=== PATIENT | male | born 1980 | race Caucasian/White ===

== ENCOUNTER 2017-05-12 16:59 | Emergency (ER) | payer OTHER ==
[~2017-05-12] VITALS: Ht 190.5 cm; Wt 172.4 kg
[~2017-05-12 16:59] MED LIST: ALLO100T PO; ALPR0.5T PO; CARV12.5 PO; CARV25TA2 PO; CLIN300C8 PO; DICL75TA PO; DOXY100C2 PO; FURO-68 PO; GLUC1TAB40 PO; HYDR-2766 PO; HYDR12.58 PO; MULT1CAP15 PO; OMEP20CA9 PO; PHEN30CA3 PO; POTA10TA31 PO; PRED20TA PO; PROAIR HFA8.5 GM IH; RAMI10CA PO; RAMI5CAP33 PO; SPIR25TA3 PO; SUMA100T4 PO; TIZA4CAP PO; TRIA1CAP3 PO; VITA400C6 PO
[2017-05-12 17:00] VITALS: BP 143/80
--- NOTE | 2017-05-12 17:20 | PHYS DOC ---
Past Medical History Past Medical History: Anxiety, Arthritis, GERD, Hypertension, Other Additional Past Medical Histor: ASD (repaired), cardiomyopathy, mitral valve problems Past Surgical History: Appendectomy, Tonsillectomy, Other Additional Past Surgical Histo: lower back surgery, 2 hernia repairs, ASD repair, cardiac cath Alcohol Use: None Drug Use: None Adult General Chief Complaint Chief Complaint: RIB PAIN [facility] HPI Patient is a 36 year old male with history of hypertension, arthritis, currently on Coumadin and monitored by the PCP who presents today with contusion to the left posterior ribs. Patient states a piece of plywood flew approx 15 feet hitting him on the left posterior ribs. Patient denies any loss of consciousness. Denies any difficulty breathing. Review of Systems Review of Systems Constitutional: Denies fever or chills [] Eyes: Denies change in visual acuity, redness, or eye pain [] HENT: Denies nasal congestion or sore throat [] Respiratory: Left posterior rib contusion. Denies cough or shortness of breath [ ] Cardiovascular: No additional information not addressed in HPI [] GI: Denies abdominal pain, nausea, vomiting, bloody stools or diarrhea [] : Denies dysuria or hematuria [] Musculoskeletal: Denies back pain or joint pain [] Integument: Denies rash or skin lesions [] Neurologic: Denies headache, focal weakness or sensory changes [] All other systems were reviewed and found to be within normal limits, except as documented in this note. Allergies Allergies Allergies Coded Allergies Type Severity Reaction Last Updated Verified Penicillins Allergy Intermediate see comment 06/26/15 Yes cephalexin Allergy Intermediate see comment 06/26/15 Yes ciprofloxacin Allergy Intermediate see comment 06/26/15 Yes levofloxacin Adverse Reaction Intermediate nausea/vomiting 06/26/15 Yes Physical Exam Physical Exam Constitutional: Well developed, well nourished, no acute distress, non-toxic appearance. [] HENT: Normocephalic, atraumatic, bilateral external ears normal, oropharynx moist, no oral exudates, nose normal. [] Eyes: PERRLA, EOMI, conjunctiva normal, no discharge. [] Neck: Normal range of motion, no tenderness, supple, no stridor. [] Cardiovascular:Heart rate regular rhythm, no murmur [] Lungs & Thorax: Left posterior ribs approximately ribs 6,7 and 8 with superficial bruising. Bilateral breath sounds clear to auscultation [] Abdomen: Bowel sounds normal, soft, no tenderness, no masses, no pulsatile masses. [] Skin: Warm, dry, no erythema, no rash. [] Back: No tenderness, no CVA tenderness. [] Extremities: No tenderness, no cyanosis, no clubbing, ROM intact, no edema. [] Neurologic: Alert and oriented X 3, normal motor function, normal sensory function, no focal deficits noted. [] Psychologic: Affect normal, judgement normal, mood normal. [] Current Patient Data Vital Signs Vital Signs Date Time Temp Pulse Resp B/P (MAP) Pulse Ox O2 Delivery O2 Flow Rate FiO2 05/12/17 17:00 98.0 74 18 143/80 (101) 94 Room Air 98.0 EKG EKG [] Radiology/Procedures Radiology/Procedures [] Course & Med Decision Making Course & Med Decision Making Pertinent Labs and Imaging studies reviewed. (See chart for details) Patient has posterior rib contusion after being heat by a flying plywood. Left rib x-rays including PA chest interpreted by Dr. Mejía were negative for any acute findings. Patient has left rib contusion. Ice to the affected area recommended. Discharged with cyclobenzaprine. Deep breaths recommended. Follow- up with PCP in 1-2 weeks. Provided return precautions and discharged in stable condition. Dragon Disclaimer Dragon Disclaimer This electronic medical record was generated, in whole or in part, using a voice recognition dictation system. Departure Departure Impression: Primary Impression: Contusion of rib on left side Disposition: 01 HOME, SELF-CARE Condition: STABLE Referrals: GARY SMITH MD (PCP) Follow-up in one week Patient Instructions: Contusion, [id number] Additional Instructions: You were seen with rib contusion. Apply ice to the affected area. Take the prescribed muscle relaxer as needed for pain. Take deep breaths 10 times every hour while awake. Follow-up with your doctor in one week. Return to the emergency room if symptoms worsen. Scripts Cyclobenzaprine Hcl (CYCLOBENZAPRINE HCL) 10 Mg Tablet 1 TAB PO TID, #30 TAB Prov: LALY CARDOZA FRICTION WELDING MACHINE OPERATOR 05/12/17 Problem Qualifiers Primary Impression: Contusion of rib on left side Encounter type: initial encounter Qualified Codes: S20.212A - Contusion of left front wall of thorax, initial encounter LALY CARDOZA APRN May 12, 2017 17:20
[2017-05-12] MEDS ORDERED: CYCL10TA2 PO (18:10)
--- NOTE | 2017-05-13 08:15 | RAD ---
Left RIBS with chest, 3 views, 05/12/2017: History: Injury, pain No rib fracture is identified. There is no evidence of underlying pneumothorax or hemothorax. Mild bibasilar linear opacities are compatible with atelectasis. There has been a previous median sternotomy. The heart is of normal size. There is a mild thoracolumbar scoliosis. IMPRESSION: 1. No acute left rib abnormality is detected. 2. Bibasilar linear atelectasis.
[2017-05-18] MEDS ORDERED: ENAL10TA PO (18:31)
[2017-05-18] MEDS ORDERED: TIZA4TAB PO (18:31)
[2017-05-18] MEDS ORDERED: DOFE250C PO (18:31)
[2017-05-18] MEDS ORDERED: DILT120C80 PO (18:31)
[2017-05-18] MEDS ORDERED: METO-269 PO (18:31)
[2017-05-18] MEDS ORDERED: WARF7.5T6 PO (18:36)
[2017-05-18] MEDS ORDERED: WARF5TAB7 PO (18:36)
== END 2017-05-12 18:24 | disposition home or self-care (01) ==
LOC: ER 16:59
DX: S20.212A Contusion of left front wall of thorax, initial encounter (principal); K21.9 Gastro-esophageal reflux disease without esophagitis; M19.90 Unspecified osteoarthritis, unspecified site; I10 Essential (primary) hypertension; Z88.0 Allergy status to penicillin; Z88.1 Allergy status to other antibiotic agents; W20.8XXA Other cause of strike by thrown, projected or falling object, initial encounter; Y93.89 Activity, other specified; Y99.8 Other external cause status; Y92.89 Other specified places as the place of occurrence of the external cause
CPT/HCPCS: 71101; 99284

== ENCOUNTER → 2018-03-18 | Outpatient (CLI) | payer OTHER ==
[2017-06-01 11:00] VITALS: BP 130/73
[~2018-03-18] MED LIST changes: +CYCL10TA2 PO; +DILT120C80 PO; +DOFE250C PO; +ENAL10TA PO; +METO-269 PO; -RAMI10CA PO; +RAMI10CA53 PO; -SPIR25TA3 PO; +SPIR25TA5 PO; +TIZA4TAB PO; +WARF-31 PO; +WARF7.5T45 PO
--- NOTE | 2018-03-18 16:28 | KCIC ---
KNEE RIGHT 3V History: Right anterior pain and effusion for 5 days.. Comparison: None are available Suprapatellar fullness, compatible with a large joint effusion. No bone destruction or acute fracture. Joint spaces grossly intact. Soft tissue nodularity along the medial lower extremity, likely superficial varicosities. IMPRESSION: Large suprapatellar joint effusion. Electronically signed by: Joce Miller MD (03/18/2018 4:25 PM) [facility]
== END | disposition home or self-care (01) ==
LOC: KCIC 15:22
PROVIDERS: ATTEND Family Medicine
DX: M25.461 Effusion, right knee (principal)
CPT/HCPCS: 73562

== ENCOUNTER → 2018-05-14 | Outpatient (CLI) | payer OTHER ==
[2017-06-01 11:00] VITALS: BP 130/73
[~2018-05-14] MED LIST changes: -DILT120C80 PO; +DILT120C85 PO; -HYDR-2766 PO; +HYDR-2769 PO
--- NOTE | 2018-05-14 14:37 | KCIC ---
MR of the right knee Indication: Right knee pain, pain since March. Swelling. Pain laterally. Comparison: None are available. Technique: The standard multiplanar sequences are obtained. FINDINGS: Artifact: Mild motion degradation. Medial meniscus: Intrameniscal signal likely exaggerated by the motion. No definite tear. Lateral meniscus: Intact. Anterior cruciate ligament: Intact. Posterior cruciate ligament: Intact Medial collateral ligament: Intact. Lateral structures: * Iliotibial band: Intact. * Lateral collateral ligament: Intact. * Biceps femoris tendon: Intact * Popliteus tendon attachment: Intact Extensive mechanism: * Patellar tendon: Intact * Quadriceps tendon: Intact * Retinacular structures: Intact Fluid: Moderate joint effusion. No significant Caba's cyst. Intra-articular bodies: None visualized Joint compartments * patellofemoral joint: Moderate chondromalacia. * medial compartment: Moderate chondromalacia. * lateral compartment: Moderate to severe chondromalacia at the lateral tibial plateau, [id number] at the lateral femoral condyle. Bones: No significant lesion or acute fracture. Soft tissue: Mild anterior subcutaneous edema. Impression: 1. Primary osteoarthritis. 2. Medial meniscal signal, likely exaggerated by the motion degradation, no definite tear. Electronically signed by: Joce Miller MD (05/14/2018 2:34 PM) [facility]
== END | disposition home or self-care (01) ==
LOC: KCIC MRI 08:35
PROVIDERS: ATTEND Family Medicine
DX: M17.11 Unilateral primary osteoarthritis, right knee (principal); M22.41 Chondromalacia patellae, right knee; M25.461 Effusion, right knee; R60.0 Localized edema
CPT/HCPCS: 73721

== ENCOUNTER 2018-09-29 06:38 | Day surgery (SDC) | payer OTHER ==
--- NOTE | 2018-09-28 16:59 | PDOC1 ---
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 He had a right knee injury in March, denied by Worker's Comp. He said he worked hard for a day at work, the knee swelled when he was at work, and he couldn't weight-bear the next day. He saw Dr. Smith, a week later, using a walker. 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 Aspirated twice and blood came out of the knee when it was aspirated. Depo inj in may 2018. Ordered hinged knee braces but not wearing today. He has a complex medical history which somewhat interferes with the treatment of his knee. For example normally NSAIDs would be used but he cannot take them due to routine Coumadin usage. He has a prior injury history, after which he developed 5 pulmonary emboli. In May 2017 he had an on-the-job injury where he got hit in the back with plywood. He sustained a spleen and liver laceration, and a pneumothorax, and was initially treated in the ICU. He then was hospitalized for a total of 2 months, including at [facility]. He was hospitalized from May 12, 2017 until July 07, 2017. It took him about 10 months to get back to work and he finally did in late February 2018. He is on nighttime oxygen. He remains on Coumadin. He's been taking hydrocodone recently. At his last visit I recommended nonoperative treatment with a cortisone injection and physical therapy. He has some symptoms of medial meniscus tear pathology but the MRI is not conclusive, and he would be high risk for surgery. We tried the cortisone injection and therapy he is still struggling quite a bit. He said he was about 30 or 40% better with the therapy and then suddenly got worse. He has medial knee pain, and sometimes radiates posteriorly. It does not feel like a DVT, and he is on Coumadin with INR 2.5-3.5, so a new clot would not likely drying rack changer.Has lost short term disablility due to lack of evidence he needed to be off of work, so went to a few PT visits but could not afford more. Has been doing exercises at home which has caused pain. Having trouble lifting leg. His symptoms and history are consistent with medial meniscus tear, and MRI certainly shows some changes in the posterior medial meniscus very suspi cious for medial meniscus tear. He is here for elective arthroscopic meniscectomy. Past Medical History Past Medical History Cardiomyopathy. Back pain. High blood pressure. Arythmia. Cardiac arrhythmia. Lung disease. Ulcers. Migraine headaches. Right Leg Nerve Damage Cardiovascular: Other Pulmonary: Pulmonary embolus GI: Peptic Ulcer disease Heme/Onc: No pertinent hx Hepatobiliary: No pertinent hx Psych: No pertinent hx Rheumatologic: No pertinent hx Infectious disease: No pertinent hx Renal/: No pertinent hx Endocrine: No pertinent hx Past Surgical History Past Surgical History: Hernia Repair, Other Family History Family History: Coronary Artery Disease, Diabetes, Heart Disease Social History Smoke: Quit ALCOHOL: none Drugs: None Current Medications Current Medications Current Medications Fentanyl Citrate (Fentanyl 2ml Vial) 25 mcg PRN Q5MIN PRN IV MILD PAIN; Start 09/29/18 at 07:00; Stop 09/30/18 at 06:59 Fentanyl Citrate (Fentanyl 2ml Vial) 50 mcg PRN Q5MIN PRN IV MODERATE TO SEVERE PAIN; Start 09/29/18 at 07:00; Stop 09/30/18 at 06:59 Morphine Sulfate (Morphine Sulfate) 1 mg PRN Q10MIN PRN IV SEVERE PAIN; Start 09/29/18 at 07:00; Stop 09/30/18 at 06:59 Ringer's Solution 1,000 ml @ 30 mls/hr Q24H IV ; Start 09/29/18 at 07:00; Stop 09/29/18 at 18:59 Lidocaine HCl (Xylocaine-Mpf 1% 2ml Vial) 2 ml PRN 1X PRN ID PRIOR TO IV START; Start 09/29/18 at 07:00; Stop 09/30/18 at 06:59 Hydromorphone HCl (Dilaudid) 0.5 mg PRN Q10MIN PRN IV SEV PAIN, Second choice; Start 09/29/18 at 07:00; Stop 09/30/18 at 06:59 Active Scripts Active Reported Lovenox (Enoxaparin Sodium) 120 Mg/0.8 Ml Disp.syrin 120 Mg SQ BID Bupropion Xl (Bupropion Hcl) 150 Mg Tab.er.24h 150 Mg PO DAILY Potassium Chloride 10 Meq Tablet.er 10 Meq PO DAILY Cardizem Cd (Diltiazem Hcl) 240 Mg Cap.er.24h 240 Mg PO HS Warfarin Sodium 5 Mg Tablet 1 Tab PO QODAY Warfarin Sodium 7.5 Mg Tablet 7.5 Mg PO QODAY Tikosyn (Dofetilide) 250 Mcg Capsule 250 Mcg PO BID Enalapril Maleate 10 Mg Tablet 1 Tab PO DAILY Toprol Xl (Metoprolol Succinate) 50 Mg Tab.er.24h 1 Tab PO BID Proair Hfa Inhaler (Albuterol Sulfate) 8.5 Gm Hfa.aer.ad Unknown Dose IH PRN Q4- 6HRS Sumatriptan Succinate 100 Mg Tablet 100 Mg PO PRN Hydrocodone-Apap 10-325 (Hydrocodone Bit/Acetaminophen) 1 Each Tablet 2 Each PO TID PRN Xanax (Alprazolam) 0.5 Mg Tablet 0.5 Mg PO BID PRN Lasix (Furosemide) 40 Mg Tablet 20 Mg PO DAILY Omeprazole 20 Mg Capsule.dr 40 Mg PO DAILY Allopurinol 100 Mg Tablet 100 Mg PO BID Allergies Allergies: Coded Allergies: Penicillins (Verified Allergy, Intermediate, Anaphylaxis, 09/25/18) cephalexin (Verified Allergy, Intermediate, Anaphylaxis, 09/25/18) ciprofloxacin (Verified Allergy, Intermediate, Shortness of Air, 09/25/18) levofloxacin (Verified Adverse Reaction, Intermediate, nausea/vomiting, 06/26/15) ROS General: No: Chills, Night Sweats Eyes: No Blurry vision, No Double vision HEENT: No: Heacaches, Oral lesions Hematological and Lymphatic: YES: Blood Clots Respiratory: No: Cough, Pleuritic Pain Cardiovascular: No Chest Pain Gastrointestinal: No Nausea, No Vomiting, No Diarrhea Genitourinary: No Dysuria, No Hematuria Musculoskeletal: Yes Joint Pain Physical Exam General: Alert, Cooperative HEENT: Atraumatic Lungs: Other (fair air movement, gets SOB easily) Heart: RRR Abdomen: Soft Extremities: No cyanosis, Normal pulses, Other (The RIGHT knee shows normal alignment, no masses. There is no effusion. There is tenderness at the medial joint line. Genesis's test is positive. There is medial joint line pain with deep flexion and especially with rotation of the tibia. The lateral joint line shows no tenderness. Range of motion is 0-135 degrees. There is trace patellofemoral crepitus. The knee is stable to varus and valgus stress without subluxation or laxity. The ACL feels intact on Otilio testing. Muscle strength is normal (5/5) for quadriceps and hamstrings, and muscle tone is normal. The skin is normal with no scars, rashes, lesions or ulcers. Light touch sensation is intact. No edema and no varicosities. Dorsalis pedis pulse is intact and capillary refill is normal) Skin: No breakdown, No significant lesion Neuro: Normal speech, Sensation intact (nerve damage right leg) Psych/Mental Status: Mood NL Images Images Report reviewed, images independently reviewed, right knee x-ray 03/18/18, and right knee MRI 05/14/18. MRI series 11 image 10 shows meniscal abnormality, but not a definite tear. I agree with Dr. Miller there is definite cartilage abnormality and evidence of osteoarthritis. MRI series 9, images 9-18 show a large effusion. [facility] [address] [place] [address] [facility] [address] [place] [address] IMAGING REPORT Signed PATIENT: BARBARA BURNS ACCOUNT: [id number] : 1980 LOCATION: [facility] AGE: 37 SEX: M EXAM STATUS: REG CLI ORD. PHYSICIAN: GARY SMITH MD REASON: RT ANTERIOR RADIATING LAT KNEE PAIN/EFFUSION X'S 5 DAYS, NO KNOWN INJURY PROCEDURE: KNEE RIGHT 3V KNEE RIGHT 3V History: Right anterior pain and effusion for 5 days.. Comparison: None are available Suprapatellar fullness, compatible with a large joint effusion. No bone destruction or acute fracture. Joint spaces grossly intact. Soft tissue nodularity along the medial lower extremity, likely superficial varicosities. IMPRESSION: Large suprapatellar joint effusion. Electronically signed by: Joce Miller MD (03/18/2018 4:25 PM) [facility] DICTATED and SIGNED BY: JOCE MILLER MD DATE: 03/18/18 0970 [facility] [address] [place] [address] IMAGING REPORT Signed PATIENT: BARBARA BURNS ACCOUNT: [id number] : 1980 LOCATION: [facility] MRI AGE: 37 SEX: M EXAM STATUS: REG CLI ORD. PHYSICIAN: GARY SMITH MD REASON: RIGHT KNEE PAIN PROCEDURE: LOWER EXT JOINT WO RT MR of the right knee Indication: Right knee pain, pain since March. Swelling. Pain laterally. Comparison: None are available. Technique: The standard multiplanar sequences are obtained. FINDINGS: Artifact: Mild motion degradation. Medial meniscus: Intrameniscal signal likely exaggerated by the motion. No definite tear. Lateral meniscus: Intact. Anterior cruciate ligament: Intact. Posterior cruciate ligament: Intact Medial collateral ligament: Intact. Lateral structures: * Iliotibial band: Intact. * Lateral collateral ligament: Intact. * Biceps femoris tendon: Intact * Popliteus tendon attachment: Intact Extensive mechanism: * Patellar tendon: Intact * Quadriceps tendon: Intact * Retinacular structures: Intact Fluid: Moderate joint effusion. No significant Caba's cyst. Intra-articular bodies: None visualized Joint compartments * patellofemoral joint: Moderate chondromalacia. * medial compartment: Moderate chondromalacia. * lateral compartment: Moderate to severe chondromalacia at the lateral tibial plateau, [id number] at the lateral femoral condyle. Bones: No significant lesion or acute fracture. Soft tissue: Mild anterior subcutaneous edema. Impression: 1. Primary osteoarthritis. 2. Medial meniscal signal, likely exaggerated by the motion degradation, no definite tear. Electronically signed by: Joce Miller MD (05/14/2018 2:34 PM) [facility] DICTATED and SIGNED BY: JOCE MILLER MD DATE: 05/14/18 1428 VTE Prophylaxis Ordered VTE Prophylaxis Devices: Yes VTE Pharmacological Prophylaxi: Yes Assessment/Plan Assessment/Plan He has recurrent right knee effusions, medial meniscus pathology on MRI, medial joint line tenderness on exam and positive Genesis's test. We tried a cortisone injection and physical therapy as well as time. His weight-bearing x-rays of the knee do not show any significant narrowing, and there are no osteophytes. He is 38 years old, 72 inches tall, 468 pounds. We discussed options for treatment and the natural history of knee pathology such as complex meniscus tear, and ultimate development of osteoarthritis. At this juncture I do recommend arthroscopic surgery, but discussed with him my hesitation due to the increased medical risk. He stated understanding. He has had surgery since his pulmonary embolus diagnosis, and is familiar with Lovenox bridge. We will request Dr. Smith's input as to the dosage of the Lovenox. The plan would be an arthroscopic medial meniscectomy. he has been unable to tolerate CPAP for his sleep apnea but uses 3 L of oxygen at nighttime. I recommended an overnight stay after the arthroscopic surgery to help prevent respiratory complications after the surgery. I discussed with him the risks of meniscectomy including progressive arthritis and continued pain and unfortunately I would not recommend knee replacement at his weight, even if the arthritis progresses. We discussed other options such as continued therapy and cortisone injections but those don't seem to be providing effective relief. He stated understanding of risks, benefits and alternatives, the increased risk of an arthroscopic surgery in his case,and desires to proceed with a right knee arthroscopic medial meniscectomy. JANEEN WHEAT MD Sep 28, 2018 16:59
[~2018-09-29] VITALS: Ht 184.2 cm; Wt 212.3 kg
[~2018-09-29 06:38] MED LIST changes: +ALBU2.5V8 IH; +BUPR150T6 PO; +CLINDAMYCIN 900MG PREMIX 50 ML IV PRN; +DILT240C2 PO; +ENOX120D SQ; +OMEP20CA10 PO; -OMEP20CA9 PO; +POTA10TA12 PO; -PROAIR HFA8.5 GM IH
[2018-09-29] MEDS ORDERED: HYDROmorphone 2 MG/ML VIAL IV PRN (07:00)
[2018-09-29] MEDS ORDERED: LIDOCAINE 1% PF 2 ML VIAL. ID PRN (07:00)
[2018-09-29] MEDS ORDERED: IV RINGERS,LACTATED 1000ML 1,000 ML IV SCH (07:00)
[2018-09-29] MEDS ORDERED: fentaNYL PF VIAL 100 MCG/2 ML VIAL IV PRN (07:00)
[2018-09-29] MEDS ORDERED: BUPIVACAINE 0.25% 50 ML VIAL. ONE (08:05)
[2018-09-29] MEDS ORDERED: EPINEPHrine VIAL 30 MG/30 ML VIAL ONE (08:05)
[2018-09-29 08:20] LABS: PROTHROMBIN TIME PATIENT 14.1 SEC (11.7-14.0)
[2018-09-29 08:24] LABS: CALCIUM 9.4 mg/dL (8.5-10.1); GFR 82.8; POTASSIUM 4.6 mmol/L (3.5-5.1)
[2018-09-29] MEDS ORDERED: fentaNYL PF VIAL 100 MCG/2 ML VIAL ONE ×3 (09:41→13:32)
[2018-09-29] MEDS ORDERED: SUCCINYLCHOLINE 200 MG/10 ML VIAL. ONE (09:42)
[2018-09-29] MEDS ORDERED: METOCLOPRAMIDE HCL 10 MG/2 ML VIAL. ONE (09:59)
[2018-09-29] MEDS ORDERED: FAMOTIDINE 20 MG/2 ML VIAL ONE (09:59)
[2018-09-29] MEDS ORDERED: BUPIVACAINE MPF 0.25% 30 ML VIAL. INJ ONE ×2 (10:40→11:20)
[2018-09-29] MEDS ORDERED: DEXAMETHASONE SOD PHOS 20 MG/5 ML VIAL. ONE (10:55)
[2018-09-29] MEDS ORDERED: ONDANSETRON PF 4 MG/2 ML VIAL. ONE (10:55)
[2018-09-29] MEDS ORDERED: KETOROLAC 30 MG/ML INJ FOR OR. INJ ONE (10:56)
[2018-09-29] MEDS ORDERED: LIDOCAINE 2% PF 5 ML VIAL. ONE (10:56)
[2018-09-29] MEDS ORDERED: PROPOFOL 20 ML IV ONE (10:56)
[2018-09-29] MEDS ORDERED: SEVOFLURANE 61 TO 120 MINUTES. IH ONE (11:35)
--- NOTE | 2018-09-29 11:38 | PDOC4 ---
Operative Note Operative Note Date of Procedure: September 29, 2018 Preoperative Diagnosis: right knee medial meniscus tear Postoperative Diagnosis: 1. complex tear medial meniscus, current injury, right knee, initial encou nter, S83.231A 2. complex tear of lateral meniscus, current injury, right knee, initial encounter, S83.271A Procedures Performed: right knee arthroscopy, surgical, with meniscectomy, medial AND lateral, including meniscal shaving, including debridement/shaving of articular cartilage (chondroplasty) CPT 59193 Surgeon: Janeen Hightower MD Anesthesia: General Estimated Blood Loss: 5 mL Specimens: none Drains: none Complications: none Tourniquet time: 32 minutes Indications for Procedure: The patient is a 38-year-old with right knee pain, unrelieved with nonoperative treatment. Exam and MRI are consistent with a meniscus tear. We talked about the risks and benefits of proceeding with an arthroscopic procedure. We talked about potential risks of ongoing pain, progressive arthritis, bleeding, infection, blood clots, or other potential surgical or anesthetic complications. All of the patient's questions about surgery were answered and they desired to proceed. Written consent was obtained. Description of Operation: The patient was identified in the preoperative holding area. The correct right knee was marked by me. The patient was taken to the operating room, where a general anesthetic was used. Preoperative antibiotics were given intravenously. A time-out procedure was performed. A tourniquet was placed on the upper thigh. Local anesthetic 20 mL of 0.25% bupivacaine with epinephrine was injected using sterile technique into the knee joint. The limb was prepared circumferentially with ChloraPrep solution and sterile waterproof arthroscopy drapes were applied. Due to the bariatric size, the standard thigh baldwin was not used. A lateral brace was used. A heel bump was used. The left leg was placed into a padded lithotomy leg baldwin. A sequential compression devices was used on the left calf. The limb was exsanguinated with an Esmarch bandage and the tourniquet was inflated to 350 mm Hg. Lateral and medial arthroscopy portals were established. The medial meniscus showed a complex unrepairable tear with unstable flaps. A meniscectomy was performed with basket forceps and the motorized shaver back to a smooth stable base, and the resection tapered into the middle one-third of the meniscus.The medial tibiofemoral joint showed chondromalacia Outerbridge grade III, and a shaving chondroplasty was performed removing unstable fragments of cartilage with the shaver.The intercondylar notch was free of loose bodies, and the ACL was intact. The lateral tibiofemoral joint showed anteriorly a complex unrepairable meniscus tear, and a meniscectomy was performed with basket forceps and the motorized shaver back to a smooth stable base.The lateral articular surfaces showed chondromalacia Outerbridge grade III, and a shaving chondroplasty was performed removing unstable fragments of cartilage with the shaver. The patellofemoral joint showed chondromalacia Outerbridge grade III, and a shaving chondroplasty was performed removing unstable fragments of cartilage with the shaver. The suprapatellar pouch, medial and lateral gutters were free of loose bodies. Copious irrigation was used to drain all meniscal and chondral fragments, and the knee was drained of fluid. The portals were closed with 3-0 Prolene interrupted sutures. Additional local anesthetic, 30 mLs of 0.25% bupivacaine with epinephrine was injected. A bulky sterile dressing was applied and the tourniquet was released. Needle and sponge counts were correct and there were no apparent complications. JANEEN HIGHTOWER MD Sep 29, 2018 11:38
[2018-09-29] MEDS: fentaNYL PF VIAL 100 MCG/2 ML VIAL IV PRN ×4 (11:58→14:30)
[2018-09-29] MEDS ORDERED: HYDR-2765 PO (12:04)
[2018-09-29] MEDS ORDERED: PROM12.58 PO (12:05)
[2018-09-29] MEDS ORDERED: MORPHINE SULFATE 2 MG/ML VIAL. ONE (12:31)
[2018-09-29] MEDS: MORPHINE SULFATE 2 MG/ML VIAL. IV PRN ×2 (12:33→12:45)
[2018-09-29] MEDS ORDERED: HYDROcodone/APAP 7.5/325MG 1 TAB TABLET ONE (13:07)
[2018-09-29] MEDS ORDERED: HYDROcodone/APAP 7.5/325MG 1 TAB TABLET PO ONE (13:15)
[2018-09-29 14:55] VITALS: BP 128/68
== END 2018-09-29 14:55 | disposition home or self-care (01) ==
LOC: SURG 06:38
PROVIDERS: ATTEND Orthopaedic Surgery
DX: S83.231A Complex tear of medial meniscus, current injury, right knee, initial encounter (principal); S83.271A Complex tear of lateral meniscus, current injury, right knee, initial encounter; M22.41 Chondromalacia patellae, right knee; M17.11 Unilateral primary osteoarthritis, right knee; I10 Essential (primary) hypertension; G43.909 Migraine, unspecified, not intractable, without status migrainosus; I42.9 Cardiomyopathy, unspecified; Z86.711 Personal history of pulmonary embolism; Z87.11 Personal history of peptic ulcer disease; Z98.890 Other specified postprocedural states; Z82.49 Family history of ischemic heart disease and other diseases of the circulatory system; Z83.3 Family history of diabetes mellitus; Z87.891 Personal history of nicotine dependence; Z79.899 Other long term (current) drug therapy; Z88.0 Allergy status to penicillin; Z88.1 Allergy status to other antibiotic agents; X58.XXXA Exposure to other specified factors, initial encounter; Y93.89 Activity, other specified; Y92.89 Other specified places as the place of occurrence of the external cause; Y99.8 Other external cause status; Z79.01 Long term (current) use of anticoagulants
CPT/HCPCS: 29880; 36415; 80048; 85610; 85730; 94660; A7015; C1782; J0171; J0330; J1100; J1885; J2001; J2270; J2405; J2704; J2765; J3010; J3490; J7120

== ENCOUNTER 2018-10-03 17:04 | Inpatient (IN) | payer OTHER ==
[~2018-10-03] VITALS: Ht 190.5 cm; Wt 202.8 kg
[~2018-10-03 17:04] MED LIST changes: -CLINDAMYCIN 900MG PREMIX 50 ML IV PRN; +HYDR-2765 PO; +PROM12.58 PO
[2018-10-03] MEDS ORDERED: IV NORMAL SALINE 500ML BAG 500 ML IV ONE (18:00)
[2018-10-03] MEDS ORDERED: fentaNYL PF VIAL 100 MCG/2 ML VIAL IV ONE (18:00)
[2018-10-03] MEDS ORDERED: IPRATRPIUM/ALBUTEROL 0.5/2.5MG 3 ML NEBU. NEB ONE (18:00)
[2018-10-03] MEDS ORDERED: ONDANSETRON PF 4 MG/2 ML VIAL. IV ONE (18:00)
[2018-10-03 18:07] LABS: BASO % 0 % (0-3); EOS % 0 % (0-3); HEMATOCRIT 38.5 % (39.0-53.0); HEMOGLOBIN 13.2 g/dL (13.0-17.5); LYMPH # 0.5 x10^3/uL (1.0-4.8); LYMPH % 5 % (24-48); MEAN CORPUSCULAR HEMOGLOBIN 31 pg (25-35); MEAN CORPUSCULAR HGB CONC 34 g/dL (31-37); MEAN CORPUSCULAR VOLUME 89 fL (79-100); MONO # 0.5 x10^3/uL (0.0-1.1); MONO % 6 % (0-9); NEUT # 8.2 x10^3uL (1.8-7.7); NEUT % 88 % (31-73); PLATELET COUNT 233 x10^3/uL (140-400); RED BLOOD COUNT 4.31 x10^6/uL (4.30-5.70); RED CELL DISTRIBUTION WIDTH 14.5 % (11.5-14.5); WHITE BLOOD COUNT 9.3 x10^3/uL (4.0-11.0)
--- NOTE | 2018-10-03 18:08 | PHYS DOC ---
Past Medical History Past Medical History: Anxiety, Arthritis, GERD, Hypertension, Other Additional Past Medical Histor: ASD (repaired), cardiomyopathy, mitral valve problems Past Surgical History: Appendectomy, Tonsillectomy, Other Additional Past Surgical Histo: lower back surgery, 2 hernia repairs, ASD repair, cardiac cath Alcohol Use: None Drug Use: None Adult General Chief Complaint Chief Complaint: POST-OP PROBLEM HPI HPI 38 y/o male presents to ER via POV for c/o fever, rt leg pain/swelling, SOA, and chest tightness. Pt reports he had meniscus outpt surgery on with Dr. Hightower and yesterday started having intermittent fever and nausea. He reports his rt leg has been hurting more with warmth and swelling to rt knee. Pt reports fever was 102.0 at home earlier today. Patient reports he did take his pain medication which does have acetaminophen in it. Patient reports he has had tightness in his chest and felt short of air which was worse with exertion. Patient denies palpitations. Patient denies any falls or injury since surgery. Pt had called Dr. Hightower prior to coming to ER and was told to come to ER for eval. Pt reports he administered his last Lovenox SQ injection last night and he has been on his Rx'd Coumadin again since Fri. as they had taken him off prior to surgery. Review of Systems Review of Systems Constitutional: Reports chills/fever and generalized fatigue Eyes: Denies change in visual acuity, redness, or eye pain [] HENT: Denies nasal congestion or sore throat [] Respiratory: Denies cough. Reports SOA Cardiovascular: Reports chest tightness GI: Denies abdominal pain, nausea, vomiting, bloody stools or diarrhea [] : Denies urinary sxs Musculoskeletal: Denies back pain. Reports rt leg pain/swelling with increased pain/swelling/warmth rt knee Integument: Denies rash or skin lesions [] Neurologic: Denies headache, focal weakness or sensory changes [] Endocrine: Denies polyuria or polydipsia [] All other systems were reviewed and found to be within normal limits, except as documented in this note. Current Medications Current Medications Current Medications Medications (Trade) Dose Ordered Sig/Marco Antonio Start Time Stop Time Status Last Admin Dose Admin Albuterol/ Ipratropium (Duoneb) 3 ml 1X ONCE 10/03/18 18:00 10/03/18 18:01 DC 10/03/18 17:55 3 ML Fentanyl Citrate (Fentanyl 2ml Vial) 50 mcg 1X ONCE 10/03/18 18:00 10/03/18 18:01 DC 10/03/18 18:11 50 MCG Info (CONTRAST GIVEN -- Rx MONITORING) 1 each PRN DAILY PRN 10/03/18 18:30 10/05/18 18:29 Iohexol (Omnipaque 350 Mg/ml) 100 ml 1X ONCE 10/03/18 18:30 10/03/18 18:31 DC Magnesium Oxide (Magnesium Oxide) 400 mg DAILY 10/03/18 19:30 Morphine Sulfate (Morphine Sulfate) 4 mg 1X ONCE 10/03/18 19:15 10/03/18 19:16 DC Ondansetron HCl (Zofran) 4 mg 1X ONCE 10/03/18 18:00 10/03/18 18:01 DC 10/03/18 18:09 4 MG Sodium Chloride 500 ml @ 500 mls/hr 1X ONCE 10/03/18 18:00 10/03/18 18:59 DC 10/03/18 18:08 500 MLS/HR Allergies Allergies Allergies Coded Allergies Type Severity Reaction Last Updated Verified Penicillins Allergy Intermediate Anaphylaxis 09/25/18 Yes cephalexin Allergy Intermediate Anaphylaxis 09/25/18 Yes ciprofloxacin Allergy Intermediate Shortness of Air 09/25/18 Yes levofloxacin Adverse Reaction Intermediate nausea/vomiting 06/26/15 Yes Physical Exam Physical Exam Constitutional: Well developed, well nourished, no acute distress, non-toxic appearance. [] HENT: Normocephalic, atraumatic, bilateral ears normal, mucous membranes pink/dry, no oral exudates, nose normal. [] Eyes: Pupils equal, conjunctiva normal, no discharge. [] Neck: Normal range of motion, no tenderness, supple, no stridor. Trachea midline Cardiovascular: Heart rate regular rhythm, no murmur [] Lungs & Thorax: Bilateral breath sounds clear to auscultation- diminished air movement in all lung bonilla- less air movement in bases. Resp. equal/nonlabored. Speaking in full sentences Abdomen: Bowel sounds normal, soft/obese, no tenderness. Bruising to lower abd- pt reports from SQ Lovenox injections since surgery on Tu. Skin: Warm, dry, no erythema, no rash. [] Back: No tenderness, no CVA tenderness. [] Extremities: No cyanosis, no clubbing. 2-3+ nonpitting edema bilat. lower extremities- difficult to palp. bilat. LE pulses d/t edema. Rt knee warm to touch with swelling- steri strips in place- no drainage from sites. Tender on palp. anterior/posterior rt knee. Bilat calf size symmetric- pt does report tenderness in rt calf. Neurologic: Alert and oriented X 3, normal motor function, normal sensory function, no focal deficits noted. [] Psychologic: Affect normal, judgement normal, mood normal. [] Current Patient Data Vital Signs Vital Signs Date Time Temp Pulse Resp B/P (MAP) Pulse Ox O2 Delivery O2 Flow Rate FiO2 10/03/18 18:45 18 94 Nasal Cannula 3.0 10/03/18 18:27 82 136/60 (85) 10/03/18 17:25 99.3 99.3 Lab Values Laboratory Tests Test 10/03/18 17:58 10/03/18 18:35 White Blood Count 9.3 x10^3/uL (4.0-11.0) Red Blood Count 4.31 x10^6/uL (4.30-5.70) Hemoglobin 13.2 g/dL (13.0-17.5) Hematocrit 38.5 % (39.0-53.0) L Mean Corpuscular Volume 89 fL (79-100) Mean Corpuscular Hemoglobin 31 pg (25-35) Mean Corpuscular Hemoglobin Concent 34 g/dL (31-37) Red Cell Distribution Width 14.5 % (11.5-14.5) Platelet Count 233 x10^3/uL (140-400) Neutrophils (%) (Auto) 88 % (31-73) H Lymphocytes (%) (Auto) 5 % (24-48) L Monocytes (%) (Auto) 6 % (0-9) Eosinophils (%) (Auto) 0 % (0-3) Basophils (%) (Auto) 0 % (0-3) Neutrophils # (Auto) 8.2 x10^3uL (1.8-7.7) H Lymphocytes # (Auto) 0.5 x10^3/uL (1.0-4.8) L Monocytes # (Auto) 0.5 x10^3/uL (0.0-1.1) Eosinophils # (Auto) 0.0 x10^3/uL (0.0-0.7) Basophils # (Auto) 0.0 x10^3/uL (0.0-0.2) Platelet Estimate Pending Prothrombin Time 15.1 SEC (11.7-14.0) H Prothrombin Time INR 1.2 (0.8-1.1) H PTT 31 SEC (24-38) Sodium Level 137 mmol/L (136-145) Potassium Level 4.6 mmol/L (3.5-5.1) Chloride Level 97 mmol/L (98-107) L Carbon Dioxide Level 32 mmol/L (21-32) Anion Gap 8 (6-14) Blood Urea Nitrogen 16 mg/dL (8-26) Creatinine 1.2 mg/dL (0.7-1.3) Estimated GFR (Cockcroft-Gault) 67.1 BUN/Creatinine Ratio 13 (6-20) Glucose Level 172 mg/dL (70-99) H Lactic Acid Level 2.1 mmol/L (0.4-2.0) H Calcium Level 9.6 mg/dL (8.5-10.1) Magnesium Level 1.5 mg/dL (1.8-2.4) L Total Bilirubin 0.7 mg/dL (0.2-1.0) Aspartate Amino Transferase (AST) 21 U/L (15-37) Alanine Aminotransferase (ALT) 62 U/L (16-63) Alkaline Phosphatase 71 U/L (46-116) Troponin I Quantitative < 0.017 ng/mL (0.000-0.055) C-Reactive Protein, Quantitative 46.2 mg/L (0-3.3) H Total Protein 7.9 g/dL (6.4-8.2) Albumin 3.9 g/dL (3.4-5.0) Albumin/Globulin Ratio 1.0 (1.0-1.7) Urine Collection Type Unknown Urine Color Yellow Urine Clarity Clear Urine pH 7.0 Urine Specific [place] 1.020 Urine Protein >=300 mg/dL (NEG-TRACE) Urine Glucose (UA) Negative mg/dL (NEG) Urine Ketones (Stick) Negative mg/dL (NEG) Urine Blood Negative (NEG) Urine Nitrite Negative (NEG) Urine Bilirubin Negative (NEG) Urine Urobilinogen Dipstick 0.2 mg/dL (0.2 mg/dL) Urine Leukocyte Esterase Negative (NEG) Urine RBC Occ /HPF (0-2) Urine WBC 0 /HPF (0-4) Urine Squamous Epithelial Cells Few /LPF Urine Bacteria 0 /HPF (0-FEW) Urine Hyaline Casts Occasional /HPF Urine Mucus Slight /LPF Laboratory Tests 10/03/18 17:58 Laboratory Tests 10/03/18 17:58 EKG EKG EKG obtained 10/03/18 at 1735 Interpreted by ER physician Sinus rhythm Ltward axis Rt BBB Rate 85 No STEMI Radiology/Procedures Radiology/Procedures PROCEDURE: VENOUS LOWER EXTREMITY RIGHT Right lower extremity venous doppler ultrasound History: Right leg swelling, post total knee replacement Comparison: None Findings: Multiple grayscale, color, and duplex spectral analysis sonographic images were acquired of the right lower extremity veins to evaluate for the presence of DVT. There is normal phasicity. Normal compression, color-flow, and augmentation is demonstrated from the right common femoral to the popliteal veins. There is normal color flow of the proximal greater saphenous and profunda femoris veins. There is normal color flow of segments of the calf veins. Impression: 1. There is no evidence of deep venous thrombosis from the right common femoral to the popliteal veins. Electronically signed by: Efren Hopkins MD (10/03/2018 7:03 PM) [facility] DICTATED and SIGNED BY: EFREN HOPKINS MD DATE: 10/03/181902 PROCEDURE: CT ANGIOGRAPHY CHEST Examination: CT ANGIOGRAPHY CHEST History: chest tightness/SOA- hx PE- recent surg. OMNI 350, 100ml, POOR CONTRAST DUE TO LARGE BODY HABITUS. Comparison/Correlation: None Findings: Axial images of chest were obtained following IV contrast according to pulmonary arteriography protocol. Opacification of the pulmonary arterial vasculature is nondiagnostic for pulmonary arterial embolic disease assessment. Hounsfield units of the main pulmonary artery is 116. This may be due to technique considering the patient body habitus or transient interruption of contrast. There is no significant contrast involving the visualized thoracic aorta with Hounsfield units of 110 present. Sternal wires are present. No enlarged thoracic lymph nodes. Mild bibasilar discoid atelectasis is noted greater on the right. No pneumothorax. Kyphosis of the lower thoracic spine is evident. Spurring of the spine noted. Small hiatal hernia noted. Metallic densities are noted along the anterior aspect of the spleen posteriorly. Fatty infiltration of liver noted. Subtle high density within the gallbladder noted. This may represent sludge although a calculus involvement is not excluded. Impression: Nondiagnostic for pulmonary arterial thromboembolic disease. Consider further evaluation with lower extremity duplex ultrasound examination or VQ scan. Mild bibasilar discoid atelectasis is greater on the right. Fatty infiltration of liver. Subtle hyperdensity in the gallbladder which may represent sludge evident. Calculus involvement not excluded. PQRS Compliance Statement: One or more of the following individualized dose reduction techniques were utilized for this examination: 1. Automated exposure control 2. Adjustment of the mA and/or kV according to patient size 3. Use of iterative reconstruction technique Electronically signed by: Tejinder Ferrer MD (10/03/2018 7:44 PM) [facility] DICTATED and SIGNED BY: TEJINDER FERRER MD DATE: 10/03/181943 Course & Med Decision Making Course & Med Decision Making Pertinent Labs and Imaging studies reviewed. (See chart for details) 1829: Spoke with Dr. Hightower, pt's orthopedic doctor and discussed pt's case/exam findings. Discussed plans for admission to pt's PCP Dr. Mckeon with consult for his services with admit. 1939: On reevaluation patient reports he is still feeling fatigued. Patient was placed on O2 via nasal cannula at 2 L and received DuoNeb treatment which he reports has improved his breathing. Patient has increased air movement through upper lung bonilla does remain diminished in bases. Discussed test results with patient and his with EKG showing no acute ST elevation or STEMI and troponin was <0.017; magnesium level was 1.5 discussed plans to replace with oral magnesium. Daily CBCs normal limits at 9.3 with lactic acid up at 2.1. Patient received IV fluids while in the ER. Patient had CRP elevated at 46.2 and sed rate 32. UA with more than 300 protein which and previous records he had 100 protein noted on past results. Negative leukocytes. Pt has been provided with pain meds while in the ER. Last temp. check 99.3. Will give dose of IV Vancomycin. Blood cxs were obtained. Pt has had no change in bilat LE. US was neg. for DVT. 1953: Spoke with Dr. Mckeon, pt's PCP and discussed pt's case and admit plan. Dragon Disclaimer Dragon Disclaimer This electronic medical record was generated, in whole or in part, using a voice recognition dictation system. Departure Departure Impression: Primary Impression: Pain and swelling of right knee Additional Impression: Dyspnea Disposition: 09 ADMITTED INPATIENT Admitting Physician: Gary Mckeon Condition: STABLE Referrals: GARY MCKEON MD (PCP) Problem Qualifiers KYLE THOMAS [employer] F[employer] Oct 03, 2018 18:08
[2018-10-03 18:18] LABS: CALCIUM 9.6 mg/dL (8.5-10.1); CREATININE 1.2 mg/dL (0.7-1.3); GFR 67.1; POTASSIUM 4.6 mmol/L (3.5-5.1); PROTHROMBIN TIME PATIENT 15.1 SEC (11.7-14.0)
[2018-10-03] MEDS ORDERED: IOHEXOL 350 MG/ML 100 ML VIAL. IV ONE (18:30)
[2018-10-03] MEDS ORDERED: CONTRAST GIVEN. MC PRN (18:30)
[2018-10-03 18:33] LABS: ALBUMIN 3.9 g/dL (3.4-5.0); MAGNESIUM 1.5 mg/dL (1.8-2.4); TOTAL BILIRUBIN 0.7 mg/dL (0.2-1.0); TOTAL PROTEIN 7.9 g/dL (6.4-8.2)
[2018-10-03 18:51] LABS: BILIRUBIN,URINE NEGATIVE (NEG); CLARITY,URINE CLEAR; COLOR,URINE YELLOW; NITRITE,URINE NEGATIVE (NEG); PROTEIN,URINE >=300 mg/dL (NEG-TRACE); UROBILINOGEN,URINE 0.2 mg/dL (0.2 mg/dL)
[2018-10-03 19:02] LABS: BACTERIA,URINE 0 /HPF (0-FEW); HYALINE CASTS, URINE OCCASIONAL /HPF; RBC,URINE OCC /HPF (0-2); SQUAMOUS EPITHELIAL CELL,UR FEW /LPF; WBC,URINE 0 /HPF (0-4)
--- NOTE | 2018-10-03 19:06 | RAD ---
Right lower extremity venous doppler ultrasound History: Right leg swelling, post total knee replacement Comparison: None Findings: Multiple grayscale, color, and duplex spectral analysis sonographic images were acquired of the right lower extremity veins to evaluate for the presence of DVT. There is normal phasicity. Normal compression, color-flow, and augmentation is demonstrated from the right common femoral to the popliteal veins. There is normal color flow of the proximal greater saphenous and profunda femoris veins. There is normal color flow of segments of the calf veins. Impression: 1. There is no evidence of deep venous thrombosis from the right common femoral to the popliteal veins. Electronically signed by: Francois Brantley MD (10/03/2018 7:03 PM) [facility]
[2018-10-03] MEDS ORDERED: MORPHINE SULFATE 4 MG/ML VIAL. IV ONE (19:15)
[2018-10-03 19:45] LABS: % BANDS 9 % (0-9); % BASOS 1 % (0-3); % LYMPHS 1 % (24-48); % MONOS 5 % (0-10); % SEGS 84 % (35-66); PLT ESTIMATE ADEQUATE (ADEQUATE)
--- NOTE | 2018-10-03 19:47 | RAD ---
Examination: CT ANGIOGRAPHY CHEST History: chest tightness/SOA- hx PE- recent surg. OMNI 350, 100ml, POOR CONTRAST DUE TO LARGE BODY HABITUS. Comparison/Correlation: None Findings: Axial images of chest were obtained following IV contrast according to pulmonary arteriography protocol. Opacification of the pulmonary arterial vasculature is nondiagnostic for pulmonary arterial embolic disease assessment. Hounsfield units of the main pulmonary artery is 116. This may be due to technique considering the patient body habitus or transient interruption of contrast. There is no significant contrast involving the visualized thoracic aorta with Hounsfield units of 110 present. Sternal wires are present. No enlarged thoracic lymph nodes. Mild bibasilar discoid atelectasis is noted greater on the right. No pneumothorax. Kyphosis of the lower thoracic spine is evident. Spurring of the spine noted. Small hiatal hernia noted. Metallic densities are noted along the anterior aspect of the spleen posteriorly. Fatty infiltration of liver noted. Subtle high density within the gallbladder noted. This may represent sludge although a calculus involvement is not excluded. Impression: Nondiagnostic for pulmonary arterial thromboembolic disease. Consider further evaluation with lower extremity duplex ultrasound examination or VQ scan. Mild bibasilar discoid atelectasis is greater on the right. Fatty infiltration of liver. Subtle hyperdensity in the gallbladder which may represent sludge evident. Calculus involvement not excluded. PQRS Compliance Statement: One or more of the following individualized dose reduction techniques were utilized for this examination: 1. Automated exposure control 2. Adjustment of the mA and/or kV according to patient size 3. Use of iterative reconstruction technique Electronically signed by: Tejinder Solis MD (10/03/2018 7:44 PM) [facility]
[2018-10-03] MEDS ORDERED: IPRATRPIUM/ALBUTEROL 0.5/2.5MG 3 ML NEBU. NEB SCH (20:00)
--- NOTE | 2018-10-03 20:00 | RAD ---
Examination: KNEE RIGHT 3V History: PAIN, SWELLING Comparison/Correlation: None Findings: Total 3 images of the right knee were obtained. Large knee joint effusion is present. No acute fracture or bony destruction. Minimal spurring about the medial compartment. No significant degenerative change. Impression: Large knee joint effusion. Electronically signed by: Tejinder Solis MD (10/03/2018 7:57 PM) [facility]
--- NOTE | 2018-10-03 20:01 | RAD ---
CHEST AP ONLY Clinical Indication: SOA Comparison: 05/27/2017 AP view of the chest. Findings: Sternal wires are present The cardiomediastinal silhouette is normal. Bibasilar discoid atelectasis is noted greater on the right. No focal infiltrate. There is no pneumothorax. No pleural effusion is appreciated. No acute bone abnormality. IMPRESSION: Bibasilar discoid atelectasis. Electronically signed by: Tejinder Solis MD (10/03/2018 7:58 PM) [facility]
[2018-10-03] MEDS: MAGNESIUM OXIDE 400 MG TABLET PO SCH (20:14)
[2018-10-03] MEDS ORDERED: ACETAMINOPHEN 325 MG TABLET. PO PRN (20:15)
[2018-10-03] MEDS ORDERED: ONDANSETRON PF 4 MG/2 ML VIAL. IV PRN (20:15)
[2018-10-03] MEDS ORDERED: VANCOMYCIN 2 GM in IV NORMAL SALINE 500ML BAG 500 ML IV ONE (20:30)
[2018-10-03 20:35] VITALS: BP 118/59
[2018-10-03] MEDS ORDERED: ALPRAZolam 0.5 MG TABLET PO PRN (21:45)
[2018-10-03] MEDS ORDERED: SUMAtriptan SUCCINATE 100 MG TABLET PO PRN (21:45)
[2018-10-03] MEDS ORDERED: ALBUTEROL SULFATE 2.5 MG/3 ML NEBU. INH SCH (22:00)
[2018-10-03] MEDS: MORPHINE SULFATE 4 MG/ML VIAL. IV PRN (22:24)
[2018-10-03] MEDS: ALLOPURINOL 100 MG TABLET. PO SCH (22:26)
[2018-10-03] MEDS: METOPROLOL SUCC 24HR ER 100 MG TAB.ER.24H. PO SCH (22:30)
[2018-10-03] MEDS ORDERED: WARFARIN 7.5 MG TABLET. PO SCH (23:00)
[2018-10-03] MEDS: PROMETHAZINE 12.5 MG TABLET. PO SCH (23:09)
[2018-10-03 23:10] VITALS: BP 121/68
[2018-10-04] MEDS: VANCOMYCIN PER PHARMACY MC PRN ×3 (00:55→23:20)
--- NOTE | 2018-10-04 00:55 | NUR ---
Pharmacy Vancomycin Dosing Note S:Consulted to monitor and dose vancomycin started 10/03/18. O:BARBARA BURNS is a 38 year old M with POST OP KNEE INFECTION . Height: 6 feet, 3 inches Weight: 205.915732 kg [place] Body Weight: 84.50 Adjusted Body Weight: 132.70 Dosing Weight: Actual Other Antibiotics: LABS: Last BUN: 16 Last Creatinine: 1.2 Creatinine Clearance: >100 mL/min Last WBC: 9.3 Last Procalcitonin: Tmax (past 24 hours): Microbiology: I/O: Drug Levels: Last level: on at Last dose given 10/03/18 at 2100 Vancomycin Dosing: Loading Dose: 2000 mg x1 Dosing Weight: Actual Target Trough: 10-20 A: Based on: WT AND CRCL P: 1. Begin Vancomycin 1500 mg IV q8h 2. Follow up Trough level on 10/04/18 at 2030 3. Pharmacy will continue to monitor, follow and adjust therapy as needed. DIONICIO RAMIREZ RPH, 10/04/18 0056 Signed: 10/04/18 at 55 by DIONICIO RAMIREZ RPH PHA
[2018-10-04] MEDS: MORPHINE SULFATE 4 MG/ML VIAL. IV PRN ×7 (01:21→19:37)
[2018-10-04 03:54] VITALS: BP 120/57
[2018-10-04] MEDS: PROMETHAZINE 12.5 MG TABLET. PO SCH ×3 (06:11→17:53)
[2018-10-04] MEDS: VANCOMYCIN 1.5 GM in IV NORMAL SALINE 500ML BAG 500 ML IV SCH ×3 (06:26→22:07)
[2018-10-04] MEDS: ALBUTEROL SULFATE 2.5 MG/3 ML NEBU. INH SCH ×5 (07:39→22:00)
[2018-10-04 07:53] VITALS: BP 115/53
[2018-10-04] MEDS: POTASSIUM CHLORIDE 10 MEQ TABLET.ER. PO SCH (08:17)
[2018-10-04] MEDS: PANTOPRAZOLE 40 MG TABLET.DR. PO SCH (08:17)
[2018-10-04] MEDS: METOPROLOL SUCC 24HR ER 50 MG TAB.ER.24H. PO SCH (08:18)
[2018-10-04] MEDS: FUROSEMIDE 40 MG TABLET. PO SCH (08:18)
[2018-10-04] MEDS: MAGNESIUM OXIDE 400 MG TABLET PO SCH (08:18)
[2018-10-04] MEDS: LACTOBACILLUS RHAMNOSUS GG 1 CAPSULE. PO SCH ×2 (08:19→22:11)
[2018-10-04] MEDS: LISINOPRIL 20 MG TABLET PO SCH (08:19)
[2018-10-04] MEDS: buPROPion XL 150 MG TAB.ER.24H. PO SCH (08:20)
[2018-10-04] MEDS: DOFETILIDE 125 MCG CAPSULE PO SCH ×2 (08:21→22:11)
[2018-10-04] MEDS: ALLOPURINOL 100 MG TABLET. PO SCH ×2 (08:21→22:10)
--- NOTE | 2018-10-04 08:37 | EKG ---
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 ABNORMAL ECG Electronically Signed On 10-07-2018 13:11:18 CDT by Mitchel Zheng
[2018-10-04] MEDS ORDERED: HYDROcodone/APAP 7.5/325MG 1 TAB TABLET PO PRN (10:30)
[2018-10-04 11:13] VITALS: BP 116/67
--- NOTE | 2018-10-04 11:17 | PDOC ---
Provider Note Provider Note [id number] GARY SMITH MD Oct 04, 2018 11:17
--- NOTE | 2018-10-04 11:37 | HP ---
ADMIT DATE: 10/03/2018 CHIEF COMPLAINT: Fever. HISTORY OF PRESENT ILLNESS: A 38-year-old white male with known cardiomyopathy and chronic atrial fibrillation, had a torn right medial meniscus about 4 months ago and then he had repair 4 days prior to admission per Dr. Hightower. He began having increasing pain and fever about a day or 2 prior to admission without any other symptoms of cough, dysuria or any other source of infection apparent. ER evaluation showed a normal chest x-ray, urine and CTA of the chest and he was admitted on IV vancomycin, pending blood culture results. PAST MEDICAL HISTORY: Multiple meds listed per the chart. He is followed at [facility] for his paroxysmal atrial fibrillation and he takes Tikosyn for this. ALLERGIES: Listed to PENICILLIN, CIPRO and LEVAQUIN. SOCIAL HISTORY: , disabled at present. Nondrinker, nonsmoker. FAMILY HISTORY: Unremarkable. REVIEW OF SYSTEMS: No other known problems. OBJECTIVE: ENT: All within normal limits. NECK: No masses, nodes or bruits. LUNGS: Clear. CARDIOVASCULAR: Regular rate. No tachycardia or murmur. ABDOMEN: Obese, soft, benign and nontender. EXTREMITIES: The right knee portal wounds look clear. The knee has not been particularly warm or red, but is tender diffusely, more superiorly. The right lower leg is a little bit reddish, but nontender and there is 2+ dependent edema whereas the left leg has less edema. Good pedal pulses bilaterally. NEUROLOGIC: Physiologic. ASSESSMENT: Febrile about 4 days after right knee meniscus repair. Stable paroxysmal atrial fibrillation, history of coronary artery disease, morbid obesity and chronic nonmalignant pain. PLAN: Vancomycin, pending cultures. Continue Lovenox until his warfarin levels are adequate. Last INR 1.2. GARY SMITH MD DR: PRITI/mya JOB#: [id number] / [id number]
[2018-10-04] MEDS: HYDROcodone/APAP 10/325 1 TAB TABLET PO SCH ×4 (11:51→22:35)
[2018-10-04 15:30] VITALS: BP 117/48
[2018-10-04] MEDS ORDERED: WARFARIN 7.5 MG TABLET. PO SCH (16:00)
[2018-10-04] MEDS: WARFARIN 5 MG TABLET. PO SCH (16:20)
--- NOTE | 2018-10-04 18:00 | NUR ---
Patient stuck 5 times when trying to get an IV inserted. 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
[2018-10-04] MEDS ORDERED: LIDOCAINE 1% Multi-Dose 20 ML VIAL. INJ ONE (19:30)
--- NOTE | 2018-10-04 19:30 | PDOC ---
Provider Note Provider Note patient who had knee scope by me on Friday. Called yesterday with malaise, fever 101-102, shortness of breath and knee pain. I recommended he go to the ER for further eval. History of PE, and is on Lovenox and coumadin. Admitted and on Vancomycin. Workup negative for DVT, PE or pneumonia. Knee apparently had cellulitis/erythema knee to foot, but is improved on Vancomycin Knee effusion (large) on exam. Portals dry. Minimal warmth/tenderness of knee joint on exam. I recommended knee aspiration. Patient agreed. I used 15 mL of 1% lidocaine anesthesia after prep with Chlorhexidine. Using sterile technique, I aspirated the knee joint using a 16 gauge needle. I retrieved 30 ml of blood/bloody fluid. I sent this in a green top for cell count and differential and in a specimen cup for gram stain and cultures, but I suspect hemarthrosis and no infection. Ice and elevate. Continue antibiotics for now. JANEEN WHEAT MD Oct 04, 2018 19:30
[2018-10-04 19:46] VITALS: BP 128/60
[2018-10-04 21:01] LABS: VANC TR 14.8 mcg/mL (10.0-20.0)
[2018-10-04 21:25] LABS: BF CLARITY TURBID; BF COLOR RED; BF MON % 16 %; BF PMN % 84 %; BF RBC COUNT 2530000 /cmm (Not Established); BF SOURCE SYNOVIAL; BF WBC COUNT 4000 /cmm (Not Established)
[2018-10-04] MEDS: METOPROLOL SUCC 24HR ER 100 MG TAB.ER.24H. PO SCH (22:11)
--- NOTE | 2018-10-04 23:20 | NUR ---
Pharmacy Vancomycin Dosing Note S:Consulted to monitor and dose vancomycin started 10/03/18. O:BARBARA BURNS is a 38 year old M with POST OP KNEE INFECTION . Height: 6 feet, 3 inches Weight: 206.251640 kg [place] Body Weight: 84.50 Adjusted Body Weight: 133.26 Dosing Weight: Actual Other Antibiotics: LABS: Last BUN: 16 Last Creatinine: 1.2 Creatinine Clearance: >100 mL/min Last WBC: 9.3 Last Procalcitonin: Tmax (past 24 hours): AFEBRILE Microbiology: I/O: Drug Levels: Last Trough level: 14.8 on 10/04/18 at 2030 Last dose given 10/04/18 at 1230 Vancomycin Dosing: Loading Dose: 2000 mg x1 Dosing Weight: Actual Target Trough: 10-20 A: Based on: TROUGH P: 1. Continue Vancomycin 1500 mg IV q8h 2. Follow up Trough level IF NEEDED 3. Pharmacy will continue to monitor, follow and adjust therapy as needed. DIONICIO RAMIREZ RPH, 10/04/182319 Signed: 10/04/18 at 2321 by DIONICIO RAMIREZ RPH PHA
[2018-10-04 23:22] VITALS: BP 140/57
[2018-10-05] VITALS (7 sets, daily range): BP systolic 114–174; BP diastolic 48–108
[2018-10-05] MEDS: HYDROcodone/APAP 10/325 1 TAB TABLET PO PRN ×2 (01:31→14:44)
[2018-10-05] MEDS: HYDROcodone/APAP 10/325 1 TAB TABLET PO SCH ×6 (04:28→23:38)
[2018-10-05] MEDS: VANCOMYCIN 1.5 GM in IV NORMAL SALINE 500ML BAG 500 ML IV SCH ×3 (05:35→20:41)
[2018-10-05] MEDS: PROMETHAZINE 12.5 MG TABLET. PO SCH ×5 (05:36→23:38)
[2018-10-05] MEDS: ALBUTEROL SULFATE 2.5 MG/3 ML NEBU. INH SCH (07:10)
[2018-10-05] MEDS: PANTOPRAZOLE 40 MG TABLET.DR. PO SCH (08:26)
[2018-10-05] MEDS: buPROPion XL 150 MG TAB.ER.24H. PO SCH (08:26)
[2018-10-05] MEDS: DOFETILIDE 125 MCG CAPSULE PO SCH ×2 (08:26→20:37)
[2018-10-05] MEDS: FUROSEMIDE 40 MG TABLET. PO SCH (08:27)
[2018-10-05] MEDS: ALLOPURINOL 100 MG TABLET. PO SCH ×2 (08:28→20:39)
[2018-10-05] MEDS: LACTOBACILLUS RHAMNOSUS GG 1 CAPSULE. PO SCH ×2 (08:28→20:39)
[2018-10-05] MEDS: METOPROLOL SUCC 24HR ER 50 MG TAB.ER.24H. PO SCH (08:29)
[2018-10-05] MEDS: MAGNESIUM OXIDE 400 MG TABLET PO SCH (08:29)
[2018-10-05] MEDS: LISINOPRIL 20 MG TABLET PO SCH (08:29)
[2018-10-05] MEDS: POTASSIUM CHLORIDE 10 MEQ TABLET.ER. PO SCH (08:29)
--- NOTE | 2018-10-05 12:48 | NUR ---
SW following pt for anticipated dc needs. Chart reviewed. Pt lives at home with family. PT/OT pending. SW will await for PT/OT recommendation to assess skilled needs. No other dc recommendation noted at this time.
[2018-10-05] MEDS: VANCOMYCIN PER PHARMACY MC PRN (13:43)
[2018-10-05] MEDS ORDERED: WARFARIN 5 MG TABLET. PO SCH (16:00)
[2018-10-05] MEDS: WARFARIN 5 MG TABLET. PO SCH (16:41)
[2018-10-05] MEDS ORDERED: ACETAMINOPHEN 325 MG TABLET. PO PRN (17:45)
[2018-10-05] MEDS: METOPROLOL SUCC 24HR ER 100 MG TAB.ER.24H. PO SCH (20:38)
[2018-10-06 03:20] VITALS: BP 109/47
[2018-10-06] MEDS: HYDROcodone/APAP 10/325 1 TAB TABLET PO SCH ×6 (03:34→23:30)
[2018-10-06] MEDS: VANCOMYCIN 1.5 GM in IV NORMAL SALINE 500ML BAG 500 ML IV SCH ×3 (05:27→21:13)
[2018-10-06] MEDS: PROMETHAZINE 12.5 MG TABLET. PO SCH (06:00)
[2018-10-06 06:35] LABS: PROTHROMBIN TIME PATIENT 15.3 SEC (11.7-14.0)
[2018-10-06 07:10] VITALS: BP 136/67
--- NOTE | 2018-10-06 08:13 | PDOC ---
Provider Note Provider Note Tmax 100.3, now afeb- cultures neg so far, exam same, - inr still 1.2 so inc warf to 15 , keep on lovemarcix- GARY SMITH MD Oct 06, 2018 08:13
[2018-10-06] MEDS ORDERED: PROMETHAZINE 12.5 MG TABLET. PO PRN (08:15)
[2018-10-06] MEDS: buPROPion XL 150 MG TAB.ER.24H. PO SCH (08:17)
[2018-10-06] MEDS: LACTOBACILLUS RHAMNOSUS GG 1 CAPSULE. PO SCH ×2 (08:17→21:09)
[2018-10-06] MEDS: DOFETILIDE 125 MCG CAPSULE PO SCH ×2 (08:17→21:10)
[2018-10-06] MEDS: FUROSEMIDE 40 MG TABLET. PO SCH (08:17)
[2018-10-06] MEDS: POTASSIUM CHLORIDE 10 MEQ TABLET.ER. PO SCH (08:18)
[2018-10-06] MEDS: ALLOPURINOL 100 MG TABLET. PO SCH ×2 (08:19→20:08)
[2018-10-06] MEDS: LISINOPRIL 20 MG TABLET PO SCH (08:19)
[2018-10-06] MEDS: MAGNESIUM OXIDE 400 MG TABLET PO SCH (08:19)
[2018-10-06] MEDS: PANTOPRAZOLE 40 MG TABLET.DR. PO SCH (08:19)
[2018-10-06] MEDS: METOPROLOL SUCC 24HR ER 100 MG TAB.ER.24H. PO SCH (08:20)
[2018-10-06 11:10] VITALS: BP 129/63
[2018-10-06] MEDS ORDERED: IPRATRPIUM/ALBUTEROL 0.5/2.5MG 3 ML NEBU. NEB PRN (12:00)
[2018-10-06] MEDS: VANCOMYCIN PER PHARMACY MC PRN (14:23)
[2018-10-06] MEDS: WARFARIN 5 MG TABLET. PO SCH (16:00)
[2018-10-06 18:15] VITALS: BP 121/60
--- NOTE | 2018-10-06 18:19 | NUR ---
Pt transferred to room 422 per bed. Report given to Yanet FORTUNE.
--- NOTE | 2018-10-06 19:09 | NUR ---
See downtime MAR for 1600 meds give per 6S RN
[2018-10-06 19:15] VITALS: BP 135/70
[2018-10-06] MEDS: METOPROLOL SUCC 24HR ER 50 MG TAB.ER.24H. PO SCH (21:09)
[2018-10-06 23:16] VITALS: BP 121/56
[2018-10-07] MEDS: HYDROcodone/APAP 10/325 1 TAB TABLET PO PRN ×6 (03:14→22:50)
[2018-10-07 03:17] VITALS: BP 128/63
[2018-10-07] MEDS: HYDROcodone/APAP 10/325 1 TAB TABLET PO SCH ×6 (03:18→23:54)
[2018-10-07] MEDS: VANCOMYCIN 1.5 GM in IV NORMAL SALINE 500ML BAG 500 ML IV SCH ×3 (05:37→20:33)
[2018-10-07] MEDS: PANTOPRAZOLE 40 MG TABLET.DR. PO SCH (05:38)
[2018-10-07 07:00] VITALS: BP 132/69
--- NOTE | 2018-10-07 07:32 | NUR ---
Lortab scheduled for 0800 will be held because Pt just received a PRN Lortab at 0647.
--- NOTE | 2018-10-07 08:42 | PDOC ---
Provider Note Provider Note vss, no more temp- joint fluid neg re wbc/grams stain, cult pending- inr noted- dc plan per dr sparks if cultures neg GARY SMITH MD October 07, 2018 08:42
[2018-10-07] MEDS: METOPROLOL SUCC 24HR ER 100 MG TAB.ER.24H. PO SCH (09:00)
[2018-10-07] MEDS: ALLOPURINOL 100 MG TABLET. PO SCH ×2 (09:25→20:32)
[2018-10-07] MEDS: DOFETILIDE 125 MCG CAPSULE PO SCH ×2 (09:25→20:31)
[2018-10-07] MEDS: LACTOBACILLUS RHAMNOSUS GG 1 CAPSULE. PO SCH ×2 (09:27→20:33)
[2018-10-07] MEDS: FUROSEMIDE 40 MG TABLET. PO SCH (09:27)
[2018-10-07] MEDS: MAGNESIUM OXIDE 400 MG TABLET PO SCH (09:27)
[2018-10-07] MEDS: buPROPion XL 150 MG TAB.ER.24H. PO SCH (09:27)
[2018-10-07] MEDS: POTASSIUM CHLORIDE 10 MEQ TABLET.ER. PO SCH (09:27)
[2018-10-07] MEDS: LISINOPRIL 20 MG TABLET PO SCH (09:28)
--- NOTE | 2018-10-07 10:13 | NUR ---
SW following for discharge planning. Discussed with RN, pt is from home. PT/OT recommending acute rehab. SW met with pt and pt's spouse at bedside to discuss discharge recommendation of acute rehab, pt reported he does not want to go to a facility and that he is non weight bearing. Pt advised he has an appointment with Dr. Hightower on 10/15/18, and anticipates he is discharging home tomorrow (10/08/18). Pt denied any further need for SW, RN notified.
[2018-10-07 11:00] VITALS: BP 142/67
[2018-10-07 11:45] LABS: PROTHROMBIN TIME PATIENT 16.9 SEC (11.7-14.0)
[2018-10-07 11:58] LABS: CREATININE 0.9 mg/dL (0.7-1.3); GFR 93.5
[2018-10-07] MEDS: VANCOMYCIN PER PHARMACY MC PRN (13:57)
[2018-10-07 15:00] VITALS: BP 114/63
[2018-10-07] MEDS: WARFARIN 5 MG TABLET. PO SCH (16:25)
[2018-10-07 19:00] VITALS: BP 125/44
--- NOTE | 2018-10-07 19:00 | NUR ---
During bed side shift change report, Pt stated that the last therapist treated him "like I was an idiot". Pt stated that the therapist kept on questioning him about how he transferred and then asked the Pt to demonstrate; it was the Pt's impression that the therapist did not believe him and was questioning his ability to take care of himself. Pt stated that Dr Hightower told him explicitly "don't do anything with that leg until your follow up appointment." Pt continued to say that he did not understand why therapists kept on coming to see him to make him do things he was not supposed to be doing. This nurse told Pt that Dr Hightower had been paged earlier in order to go over current weight bearing restrictions and see if maybe Pt could start bearing weight. Dr Hightower did not call back by shift change time.
[2018-10-07] MEDS: METOPROLOL SUCC 24HR ER 50 MG TAB.ER.24H. PO SCH (20:32)
[2018-10-07 23:00] VITALS: BP 119/61
[2018-10-08] MEDS: HYDROcodone/APAP 10/325 1 TAB TABLET PO PRN ×2 (02:26→07:01)
[2018-10-08 03:00] VITALS: BP_SYST 130; BP_SYST 137; BP_DIAS 64; BP_DIAS 87
[2018-10-08] MEDS: HYDROcodone/APAP 10/325 1 TAB TABLET PO SCH ×4 (04:00→16:39)
[2018-10-08 04:43] LABS: PROTHROMBIN TIME PATIENT 18.3 SEC (11.7-14.0)
[2018-10-08] MEDS: VANCOMYCIN 1.5 GM in IV NORMAL SALINE 500ML BAG 500 ML IV SCH (05:04)
[2018-10-08 07:00] VITALS: BP 135/73
[2018-10-08] MEDS: PANTOPRAZOLE 40 MG TABLET.DR. PO SCH (07:02)
[2018-10-08] MEDS: ALLOPURINOL 100 MG TABLET. PO SCH (08:14)
[2018-10-08] MEDS: DOFETILIDE 125 MCG CAPSULE PO SCH (08:14)
[2018-10-08] MEDS: LACTOBACILLUS RHAMNOSUS GG 1 CAPSULE. PO SCH (08:15)
[2018-10-08] MEDS: FUROSEMIDE 40 MG TABLET. PO SCH (08:15)
[2018-10-08] MEDS: LISINOPRIL 20 MG TABLET PO SCH (08:15)
[2018-10-08] MEDS: POTASSIUM CHLORIDE 10 MEQ TABLET.ER. PO SCH (08:15)
[2018-10-08] MEDS: buPROPion XL 150 MG TAB.ER.24H. PO SCH (08:15)
[2018-10-08] MEDS: MAGNESIUM OXIDE 400 MG TABLET PO SCH (08:16)
[2018-10-08] MEDS: METOPROLOL SUCC 24HR ER 100 MG TAB.ER.24H. PO SCH (08:16)
--- NOTE | 2018-10-08 08:37 | PDOC ---
Provider Note Provider Note [id number] GARY SMITH MD October 08, 2018 08:37
[2018-10-08] MEDS ORDERED: WARFARIN 5 MG TABLET. PO SCH ×2 (09:00→16:00)
--- NOTE | 2018-10-08 10:41 | DS ---
DATE OF DISCHARGE: 10/08/2018 HOSPITAL SUMMARY: A 38-year-old white male, came in with fever and some more swelling in his right knee 3-[address] Hightower did an aspiration of the knee and the fluid showed lots of blood, but no white blood cells, Gram stain was negative and culture has been negative as have all blood cultures. INR was 1.2 on admission, came up to 1.6 at the time of discharge. Laboratory studies were unremarkable and white count was normal. CTA of the chest was normal. An x-ray of the knee was ____ large effusion, but no acute changes and the ultrasound of the leg was negative for DVT. He received IV vancomycin while in the hospital with no further significant fever developed. His knee is slowly feeling better. It is felt that he can discontinue the antibiotics and be followed as an outpatient at this point. He continued on Lovenox while in the hospital as his INR levels on warfarin were not quite therapeutic, he will discontinue that drug as of today. FINAL DIAGNOSES: 1. Postoperative fever. 2. Effusion on the right knee secondary to postoperative swelling. OPERATIONS AND PROCEDURES: Joint aspiration. COMPLICATIONS: None. CONSULTATIONS: Dr. Hightower. DISPOSITION: He will take warfarin 10 mg daily starting tomorrow after 15 mg a day and an INR in 4 days. MEDICATIONS: Home meds remain the same. ACTIVITY: As tolerated. Follow up with Dr. Hightower as scheduled and with me as needed to achieve his INR of 2-3 as he has been in the past. GARY SMITH MD DR: PRITI/mya JOB#: [id number] / [id number]
[2018-10-08 11:00] VITALS: BP 138/84
--- NOTE | 2018-10-08 12:24 | NUR ---
SW following for discharge planning. Discussed with RN, pt is from home with , plan to discharge home with self care today. Pt declined acute rehab. No further SW needs.
[2018-10-08 15:00] VITALS: BP 116/47
--- NOTE | 2018-10-08 17:00 | NUR ---
Pt discharged home with no additional services, by w/c to hospital entrance, accompanied by spouse. Discharge education and information regarding Dx provided to Pt who verbalized understanding and had no further questions. Pt is to start WBAT and continue ice and elevation. No changes from previous assessment, Pt continues having difficulty and pain when moving his right leg.
== END 2018-10-08 17:00 | disposition home or self-care (01) | DRG 565 ==
LOC: ER 17:04 → 6 SOUTH 19:53 → ER 20:20 → 4 NORTH 10-06 18:20
PROVIDERS: ADMIT Family Medicine; ATTEND Family Medicine
PROC: 0S9C3ZX Drainage of Right Knee Joint, Percutaneous Approach, Diagnostic (ICD-10-PCS; principal; 2018-10-04)
DX: M25.461 Effusion, right knee (principal); L03.115 Cellulitis of right lower limb; I42.9 Cardiomyopathy, unspecified; J98.11 Atelectasis; Z68.43 Body mass index [BMI] 50.0-59.9, adult; R50.82 Postprocedural fever; I10 Essential (primary) hypertension; E66.01 Morbid (severe) obesity due to excess calories; I48.0 Paroxysmal atrial fibrillation; I25.10 Atherosclerotic heart disease of native coronary artery without angina pectoris; I48.2 Chronic atrial fibrillation; M19.90 Unspecified osteoarthritis, unspecified site; K21.9 Gastro-esophageal reflux disease without esophagitis; K76.0 Fatty (change of) liver, not elsewhere classified; Z87.74 Personal history of (corrected) congenital malformations of heart and circulatory system; Z90.49 Acquired absence of other specified parts of digestive tract; F41.9 Anxiety disorder, unspecified; G89.29 Other chronic pain; Z88.0 Allergy status to penicillin; Z88.8 Allergy status to other drugs, medicaments and biological substances
CPT/HCPCS: 36415; 71045; 71275; 73562; 80053; 80202; 81001; 82565; 83605; 83735; 84484; 85007; 85025; 85610; 85651; 85730; 86140; 87040; 87071; 87075; 89050; 93005; 93971; 94640; 94760; 96361; 96374; 96375; J1650; J2270; J2405; J3010; J3370; J7040; J7613; J7620; Q0169; 97530; 97535; 99285-25

== ENCOUNTER → 2020-12-15 | Outpatient (CLI) | payer MEDICARE ==
[~2020-12-15] MED LIST changes: +BUPR150T21 PO; -BUPR150T6 PO; +CLIN-94 PO; -CLIN300C8 PO; +CYCL10TA19 PO; -CYCL10TA2 PO; -DILT120C85 PO; +DILT120C99 PO; -DOXY100C2 PO; +DOXY100C3 PO; -ENAL10TA PO; +ENAL10TA11 PO; -OMEP20CA10 PO; +OMEP20CA16 PO; +PHEN30CA15 PO; -PHEN30CA3 PO; -POTA10TA12 PO; +POTASSIUM CHLO10 ME1 PO; +TIZA-75 PO; -TIZA4TAB PO; +VITA-47 PO; -VITA400C6 PO
[2020-12-15 16:04] LABS: PROTHROMBIN TIME PATIENT 42.9 SEC (11.7-14.0)
--- NOTE | 2020-12-15 16:22 | RAD ---
INDICATION: Reason: Right Leg Pain / Spl. Instructions: / History: COMPARISON: September 2018 TECHNIQUE: Grayscale, color and doppler ultrasound images were obtained of the left lower extremity v enous vasculature. LEFT: No thrombus identified in the common femoral vein, femoral vein, popliteal vein or visualized calf ve ins. IMPRESSION: * No thrombus identified in deep venous system of the left lower extremity. * Superficial thrombophlebitis of a varicose vein in the mid medial calf. Electronically signed by: Sammy Mckeon MD (12/15/2020 4:20 PM) [id number]
== END ==
LOC: US 14:50
PROVIDERS: ATTEND Family Medicine
DX: I80.251 Phlebitis and thrombophlebitis of right calf muscular vein (principal); I48.0 Paroxysmal atrial fibrillation; Z86.711 Personal history of pulmonary embolism
CPT/HCPCS: 36415; 85610; 93971

== ENCOUNTER → 2021-10-03 | Outpatient (CLI) | payer OTHER ==
--- NOTE | 2021-10-03 16:13 | RAD ---
EXAM: XR THORACIC SPINE 3VIEWS 10/03/2021 9:24 AM CLINICAL INDICATION: Upper back COMPARISON: CT chest 10/03/2018 TECHNIQUE: AP, lateral, and swimmer's views of the thoracic spine FINDINGS: The thoracic spine is normal in alignment. There is mild S-shaped thoracolumbar scoliosis. There is mild anterior wedging of the T7, T9, T10, T11, T12, and L1 vertebral bodies. Evaluation is limited on lateral view due to scoliosis. Some of this is unchanged from 10/03/2018. Wedging at T7 may be new and at T10 mildly increased. There is mild degenerative disc disease with disc space narrowin g and small bridging osteophytes at multiple levels. There are embolization coils in the left upper quadrant. Median sternotomy wires are noted. IMPRESSION: 1. Anterior wedging of the T7, T9-T12, and L1 vertebral bodies. Evaluation is limited on lateral view due to scoliosis. Some of this is chronic. Wedging at T7 may be new and at T10 may be increased. If there is concern for acute fracture, CT or MRI may be useful. 2. Degenerative disc disease. Electronically signed by: Ansley Hanna MD (10/03/2021 4:10 PM) [id number]
== END ==
LOC: RAD 09:09
PROVIDERS: ATTEND Family Medicine
DX: Z02.71 Encounter for disability determination (principal); M51.34 Other intervertebral disc degeneration, thoracic region; M48.04 Spinal stenosis, thoracic region; M41.85 Other forms of scoliosis, thoracolumbar region; M25.78 Osteophyte, vertebrae
CPT/HCPCS: 72072